=== PATIENT | male | born 1955 | race Caucasian/White ===

== ENCOUNTER 2017-02-08 08:04 | Outpatient (CLI) | payer OTHER | END 2017-02-08 08:05 | disposition home or self-care (01) | DX: Z00.00 Encounter for general adult medical examination without abnormal findings (principal); J30.9 Allergic rhinitis, unspecified; J45.909 Unspecified asthma, uncomplicated; I48.91 Unspecified atrial fibrillation; Z95.810 Presence of automatic (implantable) cardiac defibrillator; D29.1 Benign neoplasm of prostate; N40.1 Benign prostatic hyperplasia with lower urinary tract symptoms; N18.3 Chronic kidney disease, stage 3 (moderate); K59.00 Constipation, unspecified; K30 Functional dyspepsia; R73.01 Impaired fasting glucose; C64.9 Malignant neoplasm of unspecified kidney, except renal pelvis; I42.0 Dilated cardiomyopathy; G47.33 Obstructive sleep apnea (adult) (pediatric); G47.31 Primary central sleep apnea; R06.02 Shortness of breath; Z13.6 Encounter for screening for cardiovascular disorders; Z12.5 Encounter for screening for malignant neoplasm of prostate ==

== ENCOUNTER 2017-04-11 11:57 | Outpatient (CLI) | payer OTHER ==
[2017-04-11 12:50] LABS: CALCIUM 9.4 mg/dL (8.5-10.3); CREATININE 1.2 mg/dL (0.6-1.2); POTASSIUM 4.2 mmol/L (3.5-5.0)
== END 2017-04-11 11:58 | disposition home or self-care (01) ==
LOC: LAB 11:57
PROVIDERS: ATTEND Internal Medicine Cardiovascular Disease
DX: I50.22 Chronic systolic (congestive) heart failure (principal)
CPT/HCPCS: 36415; 80048; 83880

== ENCOUNTER 2017-08-28 08:47 | Outpatient (CLI) | payer OTHER ==
[2017-08-28 18:03] LABS: BILIRUBIN,URINE NEGATIVE (NEGATIVE)
[2017-08-28 18:07] LABS: UA CHARGE (STRIP ONLY) YES; UR CULTURE IF IND NOT INDICATED
[2017-08-28 18:43] LABS: CREATININE 1.4 mg/dL (0.6-1.2); POTASSIUM 4.5 mmol/L (3.5-5.0)
== END 2017-08-28 08:48 | disposition home or self-care (01) ==
LOC: LAB.F 08:47
PROVIDERS: ATTEND Family Medicine
DX: I50.22 Chronic systolic (congestive) heart failure (principal); N18.3 Chronic kidney disease, stage 3 (moderate); C64.9 Malignant neoplasm of unspecified kidney, except renal pelvis
CPT/HCPCS: 36415; 80048; 81001; 81003; 83880; 87086

== ENCOUNTER 2017-12-05 09:59 | Outpatient (CLI) | payer OTHER ==
[2017-12-05 18:13] LABS: CALCIUM 9.1 mg/dL (8.5-10.3); CREATININE 1.4 mg/dL (0.6-1.2)
== END 2017-12-05 10:00 | disposition home or self-care (01) ==
LOC: LAB.F 09:59
PROVIDERS: ATTEND Internal Medicine Cardiovascular Disease
DX: I50.22 Chronic systolic (congestive) heart failure (principal)
CPT/HCPCS: 36415; 80048; 83880

== ENCOUNTER 2018-03-24 08:00 | Outpatient (CLI) | payer OTHER | END 2018-03-24 23:59 | LOC: LAB.R 08:00 | PROVIDERS: ATTEND Internal Medicine | DX: L03.116 Cellulitis of left lower limb (principal) | CPT/HCPCS: 87070; 87077; 87205 ==

== ENCOUNTER 2018-04-22 08:05 | Outpatient (CLI) | payer OTHER ==
[2018-04-22 10:43] LABS: DIGOXIN < 0.2 ng/mL
[2018-04-22 10:58] LABS: THYROID STIMULATING HORMONE 3.7 uIU/mL (0.34-5.60)
[2018-04-22 11:00] LABS: FREE T4 (FREE THYROXINE) 0.94 ng/dL (0.58-1.64)
== END 2018-04-22 08:06 | disposition home or self-care (01) ==
LOC: LAB.F 08:05
PROVIDERS: ATTEND Internal Medicine
DX: Z00.00 Encounter for general adult medical examination without abnormal findings (principal); I48.91 Unspecified atrial fibrillation; Z95.810 Presence of automatic (implantable) cardiac defibrillator; L03.116 Cellulitis of left lower limb; N18.3 Chronic kidney disease, stage 3 (moderate); E03.9 Hypothyroidism, unspecified; C64.9 Malignant neoplasm of unspecified kidney, except renal pelvis; I42.0 Dilated cardiomyopathy; G47.31 Primary central sleep apnea
CPT/HCPCS: 36415; 80162; 84439; 84443; 84481

== ENCOUNTER 2019-03-20 08:42 | Outpatient (CLI) | payer OTHER ==
[2019-03-20 10:36] LABS: CHOL/HDL RATIO 4.8 (<5.0); CHOLESTEROL 182 mg/dL; HDL CHOLESTEROL 38 mg/dL; LDL CHOLESTEROL,CALCULATED 124 mg/dL; LDL/HDL RATIO 3.3 (<3.6); VLDL CHOLESTEROL 20 mg/dL
[2019-03-20 10:38] LABS: HB2 TOTAL 15.2 g/dL; HEMOGLOBIN A1C 0.58 g/dL; HEMOGLOBIN A1C % 5.6 % (4.6-6.2)
== END 2019-03-20 08:43 | disposition home or self-care (01) ==
LOC: LAB.F 08:42
PROVIDERS: ATTEND Internal Medicine
DX: R73.01 Impaired fasting glucose (principal); Z13.6 Encounter for screening for cardiovascular disorders; Z12.5 Encounter for screening for malignant neoplasm of prostate
CPT/HCPCS: 36415; 80061; 83036; 83721; 84153

== ENCOUNTER 2019-05-04 13:56 | Outpatient (CLI) | payer OTHER | END 2019-05-04 13:57 | disposition home or self-care (01) | LOC: SC 13:56 | PROVIDERS: ATTEND Internal Medicine Pulmonary Disease | DX: G47.31 Primary central sleep apnea (principal) | CPT/HCPCS: 99203; 99212 ==

== ENCOUNTER 2019-06-11 | Outpatient (CLI) | payer OTHER | END 2019-06-11 20:15 | disposition home or self-care (01) | DX: G47.33 Obstructive sleep apnea (adult) (pediatric) (principal); G47.61 Periodic limb movement disorder | CPT/HCPCS: 95810 ==

== ENCOUNTER 2019-07-07 09:54 | Outpatient (CLI) | payer OTHER ==
--- NOTE | 2019-07-07 13:55 | CONSULTATION NOTE ---
Information from patient questionnaire entered by Jo Conklin. I have reviewed and concur with the information entered by Jo Conklin. This document represents the service I personally performed and the decisions made by me, Elvia Troncoso MD, [facility]. - History of Present Illness HPI: Mr. Dixon returned for follow up of the sleep study he had on 06/11/19. The polysomnography showed that the patient had slightly reduced sleep efficiency due to frequent awakenings after the sleep onset. The sleep architecture was abnormal for sleep fragmentation and reduced amount of time spent in slow wave sleep (N3). Respiratory monitoring showed severe obstructive sleep apnea- hypopnea (AHI = 37.1) associated with frequent arousals, oxyhemoglobin desaturation and moderate hypoxia (juanita oxygen saturation of 80%). The respiratory events occurred independently of sleep stage and body position (supine AHI = 56.5; non-supine = 31.97). Snore was moderate in intensity. There was moderate periodic leg movement of sleep not contributing to the sleep fragmentation. Cardiac rhythm was normal sinus rhythm with rare premature atrial and ventricular contractions. No abnormal behavior (parasomnia) observed during the night. The patient was informed of these findings. I explained to him that he con tinues to have severe obstructive sleep apnea-hypopnea. There were only a few central apneas. PE: No significant change on the physical exam today. . IMPRESSION: 1. Obstructive Sleep Apnea-Hypopnea Syndrome, severe, associated with moderate hypoxemia and sleep fragmentation. The patient is currently on CPAP therapy set at 7 cmH2O. He reports that the treatment helps. The residual AHI was elevated at 7. Because the CPAP is now older than the useful life of 5 years, I will order the patient a new one and make it an autoCPAP set between 7 and 14 cmH2O. PLAN: 1. Prescription made for an autoCPAP, heated humidifier, and related supplies. 2. Attempt to lose weight and avoid alcohol consumption near bedtime. 3. Return for follow up after one month on the new machine. This visit is time-based and I spent 15 minutes with the patient and more than 50% of the time was spent counseling the patient. Initial [place] Sleepiness Scale score: 1 Current [place] Sleepiness Scale score: 0
== END 2019-07-07 09:55 | disposition home or self-care (01) ==
LOC: SC 09:54
PROVIDERS: ATTEND Internal Medicine Pulmonary Disease
DX: G47.33 Obstructive sleep apnea (adult) (pediatric) (principal)
CPT/HCPCS: 99212; 99213

== ENCOUNTER 2019-10-13 09:45 | Outpatient (CLI) | payer OTHER ==
--- NOTE | 2019-10-13 10:18 | SLEEP CARE CONSULTATION ---
Information from patient questionnaire entered by Jo Conklin. I have reviewed and concur with the information entered by Jo Conklin. This document represents the service I personally performed and the decisions made by me, Elvia Troncoso MD, [facility]. History of Present Illness Previous diagnosis: Severe, Obstructive Sleep Apnea-Hypopnea Syndrome AHI: 37.1 Reason for follow up: first compliance Equipment type: CPAP Equipment obtained from: [employer] Prior sleep studies: Yes HPI additional information: HPI: Mr. Dixon returned today for follow up of nasal CPAP therapy. He was diagnosed to have severe obstructive sleep apnea-hypopnea syndrome. The patient wears a Respironics DreamWear nasal cushion mask. He reports using the device nightly and all through the night. The compliance report shows usage in 30 nights out of the 30 nights between 08/04 and 09/02, averaging 6.9 hours a night. He complained of no particular problem with the device such as soreness on the face, dry nose, epistaxis, nasal congestion or headache. He thinks that the pressure of 7 14 cmH2O is comfortable (his old CPAP was set on 7 cmH2O). On the CPAP therapy he notices improvement in his sleep quality, and that he wakes up feeling fresher in the morning and more awake/alert during the day. [place] Sleepiness Scale score is 0. The average residual AHI is 7.8 (was 15 on his old machine); and air leak, 0.2 L/min. The 90th percentile pressure is 10.7 cmH2O. CPAP Compliance Data - Data Reviewed with Patient Average duration of nightly device use: 6h 52m Compliance rate %: 97 Current pressure setting (cmH2O): 7-14 Subjective Current pressure setting perceived as: comfortable Initial [place] Sleepiness Scale score: 1 Current [place] Sleepiness Scale score: 0 Allergies and Home Medications Drug allergies reviewed: Yes Home medication list reviewed: Yes Review of Systems Review of systems same as previous: Yes Physical Exam Weight: 247 lb Weight change since last visit: -19 Impression and Plan IMPRESSION: 1. Obstructive Sleep Apnea-Hypopnea Syndrome, severe, with the patient doing well on nasal CPAP therapy. He has good compliance and significant clinical improvement. The current pressure appears slightly ineffective but comfortable. Overall, he is very satisfied with treatment and plans to continue with it long-term. No adjustment is necessary today (the patient does not want the pressure change). PLAN: 1. Continue with autoCPAP set at 7 - 14 cmH2O. 2. Try to lose more weight 3. Try ResMed N30i mask 4. Return in one year for follow up or earlier if there is any problem with the treatment. I spent 100% of this 20 minute visit face to face with the patient with greater than 50% of this was spent time counseling the patient and coordination of care.
== END 2019-10-13 09:46 | disposition home or self-care (01) ==
LOC: SC 09:45
PROVIDERS: ATTEND Internal Medicine Pulmonary Disease
DX: G47.33 Obstructive sleep apnea (adult) (pediatric) (principal)
CPT/HCPCS: 99212; 99213

== ENCOUNTER 2020-03-30 08:41 | Outpatient (CLI) | payer OTHER ==
[2020-03-30 09:06] LABS: BASOPHILS % (AUTO) 0.8 %; EOSINOPHILS # (AUTO) 0.1 10^3/uL (0.0-0.7); EOSINOPHILS % (AUTO) 2.1 %; HGB - HEMOGLOBIN 15.3 g/dL (14.0-18.0); LYMPHOCYTES # (AUTO) 1.1 10^3/uL (1.5-3.5); LYMPHOCYTES % (AUTO) 20.3 %; MEAN CORPUSCULAR HEMOGLOBIN 33.2 pg (27.0-31.0); MEAN CORPUSCULAR HGB CONC 32.8 g/dL (32.0-36.0); MEAN CORPUSCULAR VOLUME 101.1 fL (80.0-94.0); MEAN PLATELET VOLUME 10.7 fL (7.4-11.4); MONOCYTES # (AUTO) 0.4 10^3/uL (0.0-1.0); MONOCYTES % (AUTO) 8.2 %; NEUTROPHILS # (AUTO) 3.6 10^3/uL (1.5-6.6); NEUTROPHILS % (AUTO) 68.2 %; PLT - PLATELET COUNT 173 10^3/uL (130-450); RED BLOOD COUNT 4.61 10^6/uL (4.70-6.10); WHITE BLOOD COUNT 5.2 x10^3/uL (4.8-10.8)
[2020-03-30 09:25] LABS: ALBUMIN/GLOBULIN RATIO 1.2 (1.0-2.2); ALKALINE PHOSPHATASE 88 IU/L (42-121); ALT ALANINE AMINOTRANSFERASE 11 IU/L (10-60); AST ASPARTATE AMINOTRANSFERASE 22 IU/L (10-42); BILIRUBIN,TOTAL 0.7 mg/dL (0.2-1.0); BUN - BLOOD UREA NITROGEN 49 mg/dL (6-20); CALCIUM 8.7 mg/dL (8.5-10.3); CARBON DIOXIDE - CO2 28 mmol/L (21-32); CHLORIDE 104 mmol/L (101-111); CHOL/HDL RATIO 5.4 (<5.0); CHOLESTEROL 207 mg/dL; CREATININE 1.8 mg/dL (0.6-1.2); GLUCOSE 92 mg/dL (70-100); HDL CHOLESTEROL 38 mg/dL; LDL CHOLESTEROL,CALCULATED 145 mg/dL; LDL/HDL RATIO 3.8 (<3.6); SODIUM 138 mmol/L (135-145); TOTAL PROTEIN 7.3 g/dL (6.7-8.2); VLDL CHOLESTEROL 24 mg/dL
[2020-03-30 09:26] LABS: DIGOXIN 0.3 ng/mL
[2020-03-30 09:45] LABS: CREATININE,URINE 110.3 mg/dL; MICROALBUM/CREATININE RATIO,UR 47.1 ug/mg (<30.0); MICROALBUMIN,URINE 5.2 mg/dL (0-300.0)
[2020-03-30 09:54] LABS: HB2 TOTAL 15.6 g/dL; HEMOGLOBIN A1C 0.61 g/dL; HEMOGLOBIN A1C % 5.7 % (4.6-6.2)
== END 2020-03-30 08:42 | disposition home or self-care (01) ==
LOC: LAB 08:41
PROVIDERS: ATTEND Internal Medicine
DX: Z00.00 Encounter for general adult medical examination without abnormal findings (principal); I12.9 Hypertensive chronic kidney disease with stage 1 through stage 4 chronic kidney disease, or unspecified chronic kidney disease; N18.3 Chronic kidney disease, stage 3 (moderate); J30.9 Allergic rhinitis, unspecified; I48.91 Unspecified atrial fibrillation; Z95.810 Presence of automatic (implantable) cardiac defibrillator; N40.1 Benign prostatic hyperplasia with lower urinary tract symptoms; N13.8 Other obstructive and reflux uropathy; M70.22 Olecranon bursitis, left elbow; L03.116 Cellulitis of left lower limb; K59.00 Constipation, unspecified; K30 Functional dyspepsia; E03.9 Hypothyroidism, unspecified; R73.01 Impaired fasting glucose; M25.569 Pain in unspecified knee; C64.9 Malignant neoplasm of unspecified kidney, except renal pelvis; I42.0 Dilated cardiomyopathy; G47.33 Obstructive sleep apnea (adult) (pediatric); G47.31 Primary central sleep apnea; R06.02 Shortness of breath
CPT/HCPCS: 36415; 80053; 80061; 80162; 82043; 82570; 83036; 83721; 83880; 84153; 84443; 85025

== ENCOUNTER 2021-02-07 09:24 | Outpatient (CLI) | payer MEDICARE, OTHER ==
[2021-02-07 15:30] LABS: CALCIUM 9.2 mg/dL (8.5-10.3); CREATININE 1.9 mg/dL (0.6-1.2); POTASSIUM 4.2 mmol/L (3.5-5.0)
== END 2021-02-07 09:25 | disposition home or self-care (01) ==
LOC: LAB.S 09:24
PROVIDERS: ATTEND Internal Medicine Cardiovascular Disease
DX: I50.42 Chronic combined systolic (congestive) and diastolic (congestive) heart failure (principal)
CPT/HCPCS: 36415; 80048; 83880

== ENCOUNTER 2021-03-30 07:35 | Outpatient (CLI) | payer MEDICARE, OTHER ==
[2021-03-30 15:22] LABS: CALCIUM 8.9 mg/dL (8.5-10.3); POTASSIUM 4.3 mmol/L (3.5-5.0)
== END 2021-03-30 07:36 | disposition home or self-care (01) ==
LOC: LAB.S 07:35
PROVIDERS: ATTEND Internal Medicine Cardiovascular Disease
DX: I50.42 Chronic combined systolic (congestive) and diastolic (congestive) heart failure (principal)
CPT/HCPCS: 36415; 80048; 83880

== ENCOUNTER 2021-05-04 09:07 | Outpatient (CLI) | payer MEDICARE, OTHER ==
[2021-05-04 15:11] LABS: BASOPHILS % (AUTO) 0.9 %; EOSINOPHILS # (AUTO) 0.1 10^3/uL (0.0-0.7); EOSINOPHILS % (AUTO) 2.7 %; HCT - HEMATOCRIT 43.9 % (42.0-52.0); LYMPHOCYTES % (AUTO) 23.8 %; MEAN CORPUSCULAR HEMOGLOBIN 33.2 pg (27.0-31.0); MEAN CORPUSCULAR HGB CONC 31.9 g/dL (32.0-36.0); MEAN PLATELET VOLUME 11.9 fL (7.4-11.4); MONOCYTES # (AUTO) 0.4 10^3/uL (0.0-1.0); MONOCYTES % (AUTO) 9.2 %; NEUTROPHILS # (AUTO) 2.8 10^3/uL (1.5-6.6); NEUTROPHILS % (AUTO) 62.9 %; PLT - PLATELET COUNT 196 10^3/uL (130-450); RED BLOOD COUNT 4.22 10^6/uL (4.70-6.10); RED CELL DISTRIBUTION WIDTH 13.6 % (12.0-15.0); WHITE BLOOD COUNT 4.4 x10^3/uL (4.8-10.8)
[2021-05-04 15:35] LABS: THYROID STIMULATING HORMONE 3.45 uIU/mL (0.34-5.60)
[2021-05-04 15:43] LABS: ALBUMIN 4.1 g/dL (3.2-5.5); ALBUMIN/GLOBULIN RATIO 1.2 (1.0-2.2); ALKALINE PHOSPHATASE 64 IU/L (42-121); ALT ALANINE AMINOTRANSFERASE < 10 IU/L (10-60); AST ASPARTATE AMINOTRANSFERASE 19 IU/L (10-42); BUN - BLOOD UREA NITROGEN 56 mg/dL (6-20); CALCIUM 9.1 mg/dL (8.5-10.3); CARBON DIOXIDE - CO2 27 mmol/L (21-32); CHLORIDE 104 mmol/L (101-111); CHOL/HDL RATIO 4.3 (<5.0); CHOLESTEROL 178 mg/dL; CREATININE 2.1 mg/dL (0.6-1.2); GFR - MDRD 32 (>89); GLUCOSE 84 mg/dL (70-100); HDL CHOLESTEROL 41 mg/dL; LDL CHOLESTEROL,CALCULATED 117 mg/dL; LDL/HDL RATIO 2.9 (<3.6); POTASSIUM 3.9 mmol/L (3.5-5.0); SODIUM 140 mmol/L (135-145); TOTAL PROTEIN 7.5 g/dL (6.7-8.2); TRIGLYCERIDES 101 mg/dL; VLDL CHOLESTEROL 20 mg/dL
== END 2021-05-04 09:08 | disposition home or self-care (01) ==
LOC: LAB.S 09:07
PROVIDERS: ATTEND Internal Medicine
DX: Z00.00 Encounter for general adult medical examination without abnormal findings (principal); I48.91 Unspecified atrial fibrillation; Z95.810 Presence of automatic (implantable) cardiac defibrillator; N18.30 Chronic kidney disease, stage 3 unspecified; E03.9 Hypothyroidism, unspecified; C64.9 Malignant neoplasm of unspecified kidney, except renal pelvis; I42.0 Dilated cardiomyopathy; G47.31 Primary central sleep apnea
CPT/HCPCS: 36415; 80053; 80061; 83721; 84443; 85025

== ENCOUNTER 2021-05-14 08:28 | Outpatient (CLI) | payer MEDICARE, OTHER ==
[2021-05-14] MEDS ORDERED: ALBUTEROL 1 PUFF INH STA (11:59)
== END 2021-05-14 08:29 | disposition home or self-care (01) ==
LOC: RT 08:28
PROVIDERS: ATTEND Internal Medicine
DX: R06.02 Shortness of breath (principal)
CPT/HCPCS: 93005; 94060; 94729

== ENCOUNTER 2021-05-14 08:34 | Outpatient (CLI) | payer MEDICARE, OTHER ==
[2021-05-14] MEDS ORDERED: ALBUTEROL 1 PUFF INH STA (11:49)
--- NOTE | 2021-05-14 11:54 | XRAY Report ---
PROCEDURE: Chest 2 View X-Ray INDICATIONS: SHORTNESS OF BREATH TECHNIQUE: 2 view(s) of the chest. COMPARISON: 2 view chest 01/13/2016-. FINDINGS: Surgical changes and devices: Pacemaking device and dual chamber leads is normal.. Lungs and pleura: No pleural effusions or pneumothorax. Lungs are mildly abnormal with a mild inter stitial prominence perhaps reflecting prior smoking history. Lung volumes are large, the diaphragms a re flattened on the lateral view and therefore smoking history is suspected.. Mediastinum: Mediastinal contours are normal. Heart size is normal. Bones and chest wall: No suspicious bony abnormalities. Soft tissues appear unremarkable. IMPRESSION: Chronic interstitial prominence, large lung volumes, suspect prior smoking history. COPD is likely present. Pacemaking device and leads appear normal. Reviewed by: Waldemar Kathleen MD on 05/14/2021 11:53 AM PDT Approved by: Waldemar Kathleen MD on 05/14/2021 11:53 AM PDT Station ID: [id number]
== END 2021-05-14 08:35 | disposition home or self-care (01) ==
LOC: DI 08:34
PROVIDERS: ATTEND Internal Medicine
DX: R06.02 Shortness of breath (principal); R91.8 Other nonspecific abnormal finding of lung field; Z95.0 Presence of cardiac pacemaker
CPT/HCPCS: 93005; 94060; 94729

== ENCOUNTER 2021-08-22 07:37 | Outpatient (CLI) | payer MEDICARE, OTHER ==
[2021-08-22 14:48] LABS: CALCIUM 8.8 mg/dL (8.5-10.3); CREATININE 1.7 mg/dL (0.6-1.2); POTASSIUM 3.9 mmol/L (3.5-5.0)
[2021-08-22 15:04] LABS: THYROID STIMULATING HORMONE 3.88 uIU/mL (0.34-5.60)
[2021-08-22 15:36] LABS: MICROALBUM/CREATININE RATIO,UR 75.2 ug/mg (<30.0); MICROALBUMIN,URINE 11.5 mg/dL (0-300.0)
== END 2021-08-22 07:38 | disposition home or self-care (01) ==
LOC: LAB.S 07:37
PROVIDERS: ATTEND Internal Medicine
DX: N18.30 Chronic kidney disease, stage 3 unspecified (principal); E03.9 Hypothyroidism, unspecified
CPT/HCPCS: 36415; 80048; 82043; 82570; 84443

== ENCOUNTER 2021-09-22 10:48 | Outpatient (CLI) | payer MEDICARE, OTHER ==
[2021-09-22 11:36] VITALS: BP 94/60
--- NOTE | 2021-09-22 11:36 | SLEEP CARE CONSULTATION ---
Information from patient questionnaire entered by Jo Conklin. I have reviewed and concur with the information entered by Jo Conklin. This document represents the service I personally performed and the decisions made by , Poornima Joseph ARNP. History of Present Illness Service Date and Time: 09/22/2021 1048 Previous diagnosis: Severe, Obstructive Sleep Apnea-Hypopnea Syndrome AHI: 37.1 Reason for follow up: annual Equipment type: CPAP Equipment obtained from: [employer] (getting supplies as needed) Mask style: Nasal Mask brand: Resmed Backup mask available: Yes (old mask) Last cushion change: 2 weeks ago Prior sleep studies: Yes Year and Where: [facility] Type of Sleep Study: Polysomnography HPI additional information: MARTHA SAMUELS was diagnosed to have severe, AHI 37.1, obstructive sleep apnea- hypopnea syndrome and returned today for CPAP therapy annual follow-up. Sleep Study - Results Type of Sleep Study: Polysomnography Prior sleep studies: Yes Year and Where: [facility] CPAP Compliance Data - Data Reviewed with Patient Average duration of nightly device use: 3 hours 37 minutes Compliance rate %: 34 Current pressure setting (cmH2O): 7-14 (95th 9.7, max 10.5) Average residual AHI: 8.6 Central apnea: 5.2 Obstructive apnea: 1.2 Hypopnea: 1 Subjective Patient concerns: reports: aerophagia, mask leak noise, dry mouth, nose, throat (dry mouth and nose). denies: mask discomfort, air blowing in eyes, condensation in mask/hose, nasal congestion, epistaxis, other Observed to snore while using device: No Current pressure setting perceived as: too high On therapy, patient: denies: sleeping better (sleeps better without it), being more awake and alert during the day, drowsiness while driving Initial [place] Sleepiness Scale score: 1 Current [place] Sleepiness Scale score: 0 Allergies and Home Medications Home medication list reviewed: Yes (no changes) Review of Systems Review of systems same as previous: No (diabetic ulcers on feet/infections; cleared up now) Physical Exam Blood Pressure: 94/60 (left upper arm) Cuff size: regular Heart Rate: 50 O2 Saturation: 94 Height: 6 ft 6 in Weight: 240 lb Body Mass Index: 27.7 BMI Classification: Overweight Impression and Plan 1. Obstructive Sleep Apnea-Hypopnea Syndrome, severe, with poor treatment compliance and fair apnea control with mildly elevated residual AHI. Patient feels that he sleep better without his CPAP. He does not feel more energy the next day after using it but only uses the device for 3.5 hours on average. I explained to him that he would get better benefit by using the CPAP for at least 6.5-7 hours for rejuvenating sleep. Compliance guidelines reviewed for insurance coverage. Patient was counseled on the difference between meeting compliance and optimal use of CPAP. Optimal use of CPAP is use of CPAP with all sleep to obtain maximum benefit of treatment. Patient is encouraged to use CPAP with all sleep. He can start with 4 hours and then increase by 15 minute increments until he is getting at least 6.5 hours of sleep in the mask. He feels the pressure is too high and will wake him up and make the mask leak. He is also waking up with aerophagia. He also used to use a [employer] Dreamwear nasal cushion mask that he felt was more comfortable. He is currently using a ResMed AirFit N30i that is just not as soft, pliable or sealing as well. He also gets some dry mouth and nose. He was advised to increase his humidity as needed to decrease oral dryness. He has elevated central apneas increasing his residual AHI. The patients pressure will be changed to autoCPAP 7-10 cmH20 for elevation of residual AHI and patient comfort. Patient advised to contact me if pressure change is uncomfortable so that it can be adjusted. Goals for apnea control discussed. Patient's apnea severity and rationale for treatment to reduce apnea, improve sleep quality and reduce cardiovascular and cerebrovascular events was reviewed. I also reviewed the benefit of consistent device use of CPAP for cardiac disease, and arrhythmia. Patient states that he has been losing weight and is continuing to try to lose his belly fat/weight. Patient was encouraged to lose weight for their overall health and to reduce apneas. * Change auto CPAP pressure to 7-10 cmH2O * Patient wants to change back to [employer] Dreamwear Nasal cushion * Notify me if snoring with mask or feeling that the pressure is too much or too little * Continue to try to lose weight * Call this office if any problems using CPAP * Return for follow up in 1-2 months, or sooner if concerns arise Counseling Topics: Spare mask, Weight loss health impact Visit Type: In Office Time Spent with Patient (minutes): 29 Provider Statement: I spent 100% of the Face to Face Visit with the patient with greater than 50% spent counseling the patient and coordination of care.
== END 2021-09-22 10:49 | disposition home or self-care (01) ==
LOC: SC 10:48
PROVIDERS: ATTEND Nurse Practitioner Family
DX: G47.33 Obstructive sleep apnea (adult) (pediatric) (principal)
CPT/HCPCS: 99213; G0463; 99212

== ENCOUNTER 2021-11-14 09:13 | Outpatient (CLI) | payer MEDICARE, OTHER ==
[2021-11-14 10:11] LABS: CALCIUM 9.4 mg/dL (8.5-10.3); CREATININE 1.5 mg/dL (0.6-1.2); POTASSIUM 4.3 mmol/L (3.5-5.0)
== END 2021-11-14 09:14 | disposition home or self-care (01) ==
LOC: LAB 09:13
PROVIDERS: ATTEND Internal Medicine Cardiovascular Disease
DX: I50.42 Chronic combined systolic (congestive) and diastolic (congestive) heart failure (principal)
CPT/HCPCS: 36415; 80048

== ENCOUNTER 2021-11-16 10:49 | Outpatient (CLI) | payer MEDICARE, OTHER ==
[2021-11-16 11:26] VITALS: BP 97/68
--- NOTE | 2021-11-16 11:26 | SLEEP CARE CONSULTATION ---
Information from patient questionnaire entered by Jp Meyer MA. I have reviewed and concur with the information entered by Jp Meyer MA. This document represents the service I personally performed and the decisions made by , Poornima Joseph ARNP. History of Present Illness Service Date and Time: 11/16/2021 1049 Previous diagnosis: Severe, Obstructive Sleep Apnea-Hypopnea Syndrome AHI: 37.1 Reason for follow up: other (TWO MONTH FOLLOW UP) Equipment type: CPAP Equipment obtained from: [employer] (getting supplies as needed) Mask style: Nasal Mask brand: Respironics Backup mask available: Yes (old mask) Last cushion change: 1 month Prior sleep studies: Yes HPI additional information: MARTHA SAMUELS was diagnosed to have severe, AHI 37.1, obstructive sleep apnea- hypopnea syndrome and returned today for CPAP therapy 2 month with pressure change follow-up. Sleep Study - Results Prior sleep studies: Yes CPAP Compliance Data - Data Reviewed with Patient Average duration of nightly device use: 5 HOURS 43 MINUTES Compliance rate %: 63 Current pressure setting (cmH2O): 7-10 Average residual AHI: 14.7 Central apnea: 8.3 Obstructive apnea: 2.6 Subjective Patient concerns: reports: mask discomfort, nasal congestion (nose feels dry with winter). denies: aerophagia, air blowing in eyes, mask leak noise, condensation in mask/hose, dry mouth, nose, throat, epistaxis, other Observed to snore while using device: No Current pressure setting perceived as: too low On therapy, patient: reports: sleeping better, awakening more refreshed, being more awake and alert during the day, more rested overall. denies: drowsiness while driving Initial [place] Sleepiness Scale score: 1 Current [place] Sleepiness Scale score: 0 (2020) Allergies and Home Medications Known drug allergies: Yes (SULFA DRUGS) Drug allergies reviewed: Yes Home medication list reviewed: Yes (NO NEW DRUGS) Review of Systems Review of systems same as previous: Yes (no changes) Physical Exam Vital signs obtained and entered by: YEIMY CHRISTIANSON Blood Pressure: 97/68 (LEFT, PT JUST TOOK BP MEDS) Heart Rate: 58 O2 Saturation: 94 (WITH MASK) Height: 6 ft 6 in Weight: 230 lb (WITH CLOTHES) Weight change since last visit: 10 pounds loss Body Mass Index: 26.6 BMI Classification: Overweight Impression and Plan 1. Obstructive Sleep Apnea-Hypopnea Syndrome, severe, with fair treatment compliance and fair apnea control with elevated residual AHI. On CPAP therapy, the patient has better sleep quality and is more rested overall. He changed to a different nasal mask about a month ago and feels it is more comfortable. His AHI is more elevated since the change of his pressure at his last visit. I will adjust his pressure since he had better control with previous pressure settings to 7 to 14 cm of H2O. He feels that changing it back with a new mask will do better and he will be able to increase the time in his mask. He has doubled his compliance since his last visit since the new mask is more comfortable to wear. Patient will call to make an appointment if the pressure still does not feel comfortable with no new mask. Otherwise we will follow-up with him in a year. 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 He was recently put on diuretics due to episodes of arrhythmia. He has lost over 20 pounds but is feeling dry. He is going to follow-up with his fraud representative to see if he can reduce the diuretic. Patient's apnea severity and rationale for treatment to reduce apnea, improve sleep quality and reduce cardiovascular and cerebrovascular events was reviewed. I a lso reviewed the benefit of consistent device use of CPAP for cardiac disease and arrhythmia. * Change auto CPAP pressure to 7-14 cmH2O * Notify me if snoring with mask or feeling that the pressure is too much or too little * Attempt to lose weight * Call this office if any problems using CPAP * Return for follow up in 1 year, or sooner if concerns arise Counseling Topics: Spare mask, Weight loss health impact Visit Type: In Office Time Spent with Patient (minutes): 21 Provider Statement: I spent 100% of the Face to Face Visit with the patient with greater than 50% spent counseling the patient and coordination of care.
== END 2021-11-16 10:50 | disposition home or self-care (01) ==
LOC: SC 10:49
PROVIDERS: ATTEND Nurse Practitioner Family
DX: G47.33 Obstructive sleep apnea (adult) (pediatric) (principal)
CPT/HCPCS: 99213; G0463; 99212

== ENCOUNTER 2021-12-12 12:50 | Outpatient (CLI) | payer MEDICARE, OTHER ==
[2021-12-12 13:15] LABS: CALCIUM 9.2 mg/dL (8.5-10.3); CREATININE 2.2 mg/dL (0.6-1.2); POTASSIUM 4.3 mmol/L (3.5-5.0)
== END 2021-12-12 12:51 | disposition home or self-care (01) ==
LOC: LAB 12:50
PROVIDERS: ATTEND Internal Medicine Cardiovascular Disease
DX: I50.42 Chronic combined systolic (congestive) and diastolic (congestive) heart failure (principal)
CPT/HCPCS: 36415; 80048; 83880

== ENCOUNTER 2022-01-01 13:27 | Outpatient (CLI) | payer MEDICARE, OTHER ==
[2022-01-01 13:56] LABS: CREATININE 1.8 mg/dL (0.6-1.2); POTASSIUM 4.3 mmol/L (3.5-5.0)
== END 2022-01-01 13:28 | disposition home or self-care (01) ==
LOC: LAB 13:27
PROVIDERS: ATTEND Internal Medicine Cardiovascular Disease
DX: I50.42 Chronic combined systolic (congestive) and diastolic (congestive) heart failure (principal); I42.8 Other cardiomyopathies
CPT/HCPCS: 36415; 80048; 83880

== ENCOUNTER 2022-05-09 14:57 | Outpatient (CLI) | payer MEDICARE, OTHER ==
--- NOTE | 2022-05-09 16:49 | Ultrasound Report ---
PROCEDURE: Aorta Screening INDICATIONS: HIST OF SMOKING TECHNIQUE: Real time scanning was performed of the aorta and iliac arteries, with image documentatio n. COMPARISON: No pertinent prior study. FINDINGS: Calcified and soft plaque throughout the aorta. No aneurysm of the aorta or, and iliac arteries. IMPRESSION: No aortic or common iliac artery aneurysm. Atherosclerosis Reviewed by: Westley Sanders MD on 05/09/2022 4:48 PM PDT Approved by: Westley Sanders MD on 05/09/2022 4:48 PM PDT Station ID: [id number]
[2022-05-09 23:31] LABS: ALBUMIN 4.1 g/dL (3.2-5.5); ALBUMIN/GLOBULIN RATIO 1.2 (1.0-2.2); ALKALINE PHOSPHATASE 92 IU/L (42-121); ALT ALANINE AMINOTRANSFERASE 11 IU/L (10-60); AST ASPARTATE AMINOTRANSFERASE 20 IU/L (10-42); BILIRUBIN,TOTAL 1.4 mg/dL (0.2-1.0); BUN - BLOOD UREA NITROGEN 49 mg/dL (6-20); CALCIUM 9.2 mg/dL (8.5-10.3); CARBON DIOXIDE - CO2 28 mmol/L (21-32); CHLORIDE 103 mmol/L (101-111); CHOL/HDL RATIO 3.3 (<5.0); CHOLESTEROL 138 mg/dL; CREATININE 1.9 mg/dL (0.6-1.2); GFR - MDRD 36 (>89); GLUCOSE 89 mg/dL (70-100); HDL CHOLESTEROL 42 mg/dL; LDL CHOLESTEROL,CALCULATED 83 mg/dL; POTASSIUM 4.2 mmol/L (3.5-5.0); SODIUM 142 mmol/L (135-145); THYROID STIMULATING HORMONE 0.23 uIU/mL (0.34-5.60); TOTAL PROTEIN 7.6 g/dL (6.7-8.2); TRIGLYCERIDES 66 mg/dL; VLDL CHOLESTEROL 13 mg/dL
[2022-05-09 23:32] LABS: BASOPHILS # (AUTO) 0.1 10^3/uL (0.0-0.1); BASOPHILS % (AUTO) 1.1 %; EOSINOPHILS # (AUTO) 0.1 10^3/uL (0.0-0.7); EOSINOPHILS % (AUTO) 2.2 %; FREE T4 (FREE THYROXINE) 1.72 ng/dL (0.58-1.64); HCT - HEMATOCRIT 46.9 % (42.0-52.0); HGB - HEMOGLOBIN 15.1 g/dL (14.0-18.0); LYMPHOCYTES # (AUTO) 0.9 10^3/uL (1.5-3.5); LYMPHOCYTES % (AUTO) 16.4 %; MEAN CORPUSCULAR HEMOGLOBIN 33.5 pg (27.0-31.0); MEAN CORPUSCULAR HGB CONC 32.2 g/dL (32.0-36.0); MEAN PLATELET VOLUME 11.6 fL (7.4-11.4); MONOCYTES # (AUTO) 0.5 10^3/uL (0.0-1.0); MONOCYTES % (AUTO) 9.2 %; NEUTROPHILS # (AUTO) 3.9 10^3/uL (1.5-6.6); NEUTROPHILS % (AUTO) 70.7 %; PLT - PLATELET COUNT 167 10^3/uL (130-450); RED BLOOD COUNT 4.51 10^6/uL (4.70-6.10); RED CELL DISTRIBUTION WIDTH 14.8 % (12.0-15.0); WHITE BLOOD COUNT 5.6 x10^3/uL (4.8-10.8)
[2022-05-09 23:34] LABS: CREATININE,URINE 69.4 mg/dL; MICROALBUM/CREATININE RATIO,UR 10.1 ug/mg (<30.0); MICROALBUMIN,URINE 0.7 mg/dL (0-300.0)
[2022-05-10 01:47] LABS: ESTIMATED AVERAGE GLUCOSE 120 mg/dL (70-100); HEMOGLOBIN A1c% 5.8 % (4.27-6.07)
== END 2022-05-09 14:58 | disposition home or self-care (01) ==
LOC: DI 14:57
PROVIDERS: ATTEND Internal Medicine
DX: Z13.6 Encounter for screening for cardiovascular disorders (principal); Z87.891 Personal history of nicotine dependence; I70.0 Atherosclerosis of aorta; N18.30 Chronic kidney disease, stage 3 unspecified; E03.9 Hypothyroidism, unspecified; I48.91 Unspecified atrial fibrillation; Z13.1 Encounter for screening for diabetes mellitus
CPT/HCPCS: 36415; 80053; 80061; 82043; 82570; 83036; 83721; 84439; 84443; 85025